=== PATIENT | female | born 1975 | race Caucasian/White ===

== ENCOUNTER 2017-08-10 19:39 | Emergency (ER) | payer BC ==
[~2017-08-10] VITALS: Ht 170.1 cm; Wt 91.6 kg
[~2017-08-10 19:39] MED LIST: ADIPEX-P37.5 MG PO; ALBUTEROL0.09 MG/A2 IH; BENADRYL25 MG PO; BIOTIN1 M1 PO; CLARITIN10 MG PO; COMBIVENT1 ARO IH; FLEXERIL10 MG PO; FLONASE ALLERG9.9 ML NAS; HYCODAN/HYDROMET5 ML PO; HYDROCODONE BIT1 T11 PO; IBU-8800 MG PO; KENALOG0.1% TP; MEDROL DOSEPAK4 MG PO; MOTRIN800 MG PO; MULTIVITAMIN1 SGL PO; NORFLEX100 MG PO; PERCOCET 325 MG1 TA7 PO; PROVENTIL0.09 MG/A1 INH; TESSALON PERLE100 MG PO; TRAMADOL HCL50 MG PO; VICODIN 500 MG-1 TAB PO; VITAMIN C100 MG PO; VOLTAREN50 M1 PO; WYMOX500 MG PO; XANAX0.25 MG PO; ZITHROMAX Z PA250 MG PO; ZOFRAN ODT4 MG SL
[2017-08-10 21:20] LABS: BASO # 0.1 10*3/uL (0.0-0.1); BASO % 0.5 % (0.0-1.0); EOS # 0.2 10*3/uL (0.0-0.4); EOS % 1.4 % (1.0-4.0); HEMATOCRIT 38.3 % (37.0-47.0); HEMOGLOBIN 12.5 g/dl (12.0-16.0); LYMPH # 2.9 10*3/uL (1.3-4.4); LYMPH % 21.7 % (27.0-41.0); MEAN CELL VOLUME 92.3 fl (81.0-99.0); MEAN CORPUSCULAR HGB 30.1 pg (27.0-31.0); MEAN CORPUSCULAR HGB CONC 32.6 g/dl (33.0-37.0); MEAN PLATELET VOLUME 10.6 fl (9.6-12.3); MONO # 0.8 10*3/uL (0.1-1.0); NEUT # 9.2 10*3/uL (2.3-7.9); PLATELET COUNT AUTOMATED 316 10*3/uL (130-400); RED BLOOD COUNT 4.15 10*6/uL (4.10-5.10); RED CELL DISTRI WIDTH 12.1 % (0-14.5); WHITE BLOOD COUNT 13.1 10*3/uL (4.8-10.8)
[2017-08-10 21:35] LABS: ALBUMIN 3.3 gm/dl (3.1-4.5); ALKALINE PHOSPHATASE 57 U/L (45-117); BUN 12 mg/dl (7-24); CHLORIDE 106 mmol/L (98-107); LIPASE 165 U/L (73-393); MAGNESIUM 2.1 mg/dL (1.5-2.1); POTASSIUM 3.4 mmol/L (3.5-5.1); SGOT/AST 29 IU/L (3-35); SGPT/ALT 52 U/L (12-78); SODIUM 140 mmol/L (136-145)
[2017-08-10 23:11] VITALS: BP 117/69
[2017-08-11] MEDS ORDERED: ANAPROX DS550 MG PO (02:04)
== END 2017-08-11 02:04 | disposition home or self-care (01) ==
LOC: ED 19:39
PROVIDERS: Emergency Medicine Emergency Medical Services
DX: M94.0 Chondrocostal junction syndrome [Tietze] (principal); B34.9 Viral infection, unspecified; Z91.041 Radiographic dye allergy status; Z91.013 Allergy to seafood; Z79.899 Other long term (current) drug therapy

== ENCOUNTER 2017-10-31 08:16 | Inpatient (IN) | payer BC ==
[2017-10-31] VITALS (8 sets, daily range): BP systolic 100–137; BP diastolic 55–80
[~2017-10-31] VITALS: Ht 170.1 cm; Wt 98.1 kg
[~2017-10-31 08:16] MED LIST changes: +ANAPROX DS550 MG PO
[2017-10-31 08:57] LABS: BASO # 0.1 10*3/uL (0.0-0.1); BASO % 0.4 % (0.0-1.0); EOS # 0.2 10*3/uL (0.0-0.4); EOS % 1.6 % (1.0-4.0); HEMATOCRIT 40.4 % (37.0-47.0); HEMOGLOBIN 13.2 g/dl (12.0-16.0); LYMPH # 1.7 10*3/uL (1.3-4.4); LYMPH % 12.3 % (27.0-41.0); MEAN CELL VOLUME 91.6 fl (81.0-99.0); MEAN CORPUSCULAR HGB 29.9 pg (27.0-31.0); MEAN CORPUSCULAR HGB CONC 32.7 g/dl (33.0-37.0); MEAN PLATELET VOLUME 10.8 fl (9.6-12.3); MONO # 0.5 10*3/uL (0.1-1.0); MONO % 3.4 % (3.0-9.0); NEUT # 11.3 10*3/uL (2.3-7.9); NEUT % 81.2 % (47.0-73.0); PLATELET COUNT AUTOMATED 289 10*3/uL (130-400); RED BLOOD COUNT 4.41 10*6/uL (4.10-5.10); RED CELL DISTRI WIDTH 11.8 % (0-14.5); WHITE BLOOD COUNT 13.9 10*3/uL (4.8-10.8)
[2017-10-31 09:05] LABS: ACT PARTIAL THROMBO TIME 22.8 SECONDS (20.8-31.5)
[2017-10-31 09:14] LABS: ALBUMIN 3.4 gm/dl (3.1-4.5); ALKALINE PHOSPHATASE 56 U/L (45-117); BUN 14 mg/dl (7-24); CHLORIDE 106 mmol/L (98-107); CREATININE 0.89 mg/dL (0.55-1.02); LIPASE 150 U/L (73-393); POTASSIUM 3.6 mmol/L (3.5-5.1); SGOT/AST 35 IU/L (3-35); SGPT/ALT 58 U/L (12-78); SODIUM 138 mmol/L (136-145); TOTAL PROTEIN 7.2 gm/dL (6.4-8.2)
[2017-10-31 09:23] LABS: BETA-HCG, QUANT < 1.0 mIU/mL (1-3); TROPONIN I < 0.015 ng/ml (<0.045)
--- NOTE | 2017-10-31 09:32 | NUR ---
CALLED AND LEFT MESSAGE FOR PTS THAT SHE IS IN ER
--- NOTE | 2017-10-31 10:30 | NUR ---
PT STATES NAUSEA IS ALMOST GONE BUT STILL FEELS DIZZY IN ROOM CALL LIGHT IN REACH
--- NOTE | 2017-10-31 11:29 | NUR ---
pt does not have to urinate she is aware we need urine sample pt resting in bed call light in reach
--- NOTE | 2017-10-31 11:43 | NUR ---
FR COHEN IN ROOM WITH PT NO DISTRESS NOTED CALL LIGHT IN REACH
--- NOTE | 2017-10-31 13:00 | NUR ---
Time: 1300 A 42 year old FEMALE admitted to under services of ANGELIKA HANEY DO. Pt. arrived via ambulance from ER. Chief complaint: SYNCOPE, DIZZINESS, NAUSEA. JAIME BUSCH
[2017-10-31] MEDS ORDERED: CELEXA40 MG PO (13:49)
[2017-10-31] MEDS ORDERED: AMOXICILLIN500 M3 PO (13:50)
--- NOTE | 2017-10-31 13:51 | NUR ---
MED REC UPDATED BY LIST PROVIDED BY [facility].
--- NOTE | 2017-10-31 14:25 | NUR ---
DIVISION ORDER TECHNICIAN APPLIED AT THIS TIME, PT OFF FLOOR TO CT AT THIS TIME.
[2017-10-31] MEDS ORDERED: ALLER-TEC D 5-1 EACH PO (14:27)
--- NOTE | 2017-10-31 17:05 | NUR ---
DR CHÁVEZ UPDATED ON PT'S NEGATIVE ORTHOSTATIC BP'S, BUT PT IS EXTREMELY SYMPTOMATIC WITH ANY POSITION CHANGE.
[2017-10-31 17:22] LABS: BILIRUBIN NEGATIVE (NEGATIVE); BLOOD NEGATIVE (NEGATIVE); CLARITY CLEAR (CLEAR); COLOR YELLOW (YELLOW); GLUCOSE NEGATIVE (NEGATIVE); KETONE NEGATIVE (NEGATIVE); LEUKO ESTERASE NEGATIVE (NEGATIVE); NITRITE NEGATIVE (NEGATIVE); PH 7.5 (5.0-9.0); UROBILINOGEN 0.2 E.U./dl (0.2-1.0)
[2017-10-31 17:33] LABS: BACTERIA 2+; RBC 0-2 rbc/hpf (0-2); YEAST TRACE
--- NOTE | 2017-10-31 19:42 | NUR ---
PATIENT RESTING IN BED WITH NO S/S OF DISTRESS. BED IN LOWEST POSITION, CALL LIGHT IN REACH
[2017-11-01] VITALS: BP 121/66
[2017-11-01 07:22] LABS: HEMATOCRIT 39.1 % (37.0-47.0); HEMOGLOBIN 12.7 g/dl (12.0-16.0); MEAN CELL VOLUME 92.4 fl (81.0-99.0); MEAN CORPUSCULAR HGB CONC 32.5 g/dl (33.0-37.0); MEAN PLATELET VOLUME 11.1 fl (9.6-12.3); PLATELET COUNT AUTOMATED 326 10*3/uL (130-400); RED BLOOD COUNT 4.23 10*6/uL (4.10-5.10); RED CELL DISTRI WIDTH 11.8 % (0-14.5); WHITE BLOOD COUNT 21.5 10*3/uL (4.8-10.8)
[2017-11-01 07:52] LABS: PLATELET SUFFICIENCY NORMAL (NORMAL); TOTAL CELLS COUNTED 100 #CELLS
[2017-11-01 08:00] VITALS: BP 127/70
[2017-11-01 08:09] LABS: BUN 10 mg/dl (7-24); CHLORIDE 106 mmol/L (98-107); CREATININE 0.84 mg/dL (0.55-1.02); PHOSPHOROUS 1.8 mg/dL (2.5-4.9); SODIUM 140 mmol/L (136-145)
[2017-11-01 08:14] LABS: THYROID STIM HORMONE (HS) 0.466 uIU/ml (0.358-4.75)
--- NOTE | 2017-11-01 09:00 | NUR ---
Special Delivery Messenger in to talk to patient. Patient states lives at home with . There are few steps in the home. Physician: abbie palomino Pharmacy: [facility] health services: none Patient's level of ADLs: INDEPENDENT Patient has working utilities: all working DME: none Follow-up physician's appointment after d/c: will be made by hospitalist nurse director upon discharge Does patient want to access PORTAL?: no Discharge plan discussed with patient, patient lives at home with , she is independent in adls and ambulation, works, drives, denies any home needs. ADELE ZHANG
[2017-11-01 12:00] VITALS: BP 137/70
[2017-11-01 16:00] VITALS: BP 106/50
[2017-11-01 20:00] VITALS: BP 137/79
--- NOTE | 2017-11-01 22:41 | NUR ---
PATIENT RESTING IN BED WITH NO NEEDS MADE. NO S/S OF DISTRESS. BED IN LOWEST POSITION, CALL LIGHT IN REACH
[2017-11-02] VITALS: BP 147/79
--- NOTE | 2017-11-02 00:59 | NUR ---
24 HR chart check completed.
[2017-11-02 04:05] VITALS: BP 144/76
[2017-11-02 08:00] VITALS: BP 129/81
--- NOTE | 2017-11-02 08:45 | NUR ---
IN BED AWAKE ALERT AND ORIENTED X3, PLEASANT. NO S/S OF DISTRESS. STATES SHE WAS DIZZY WHEN UP AMBULATING TO RESTROOM AND FELT SLIGHTLY NAUSEATED DURING THIS TIME WELL. WILL CONT TO MONITOR. SEE ASSESS. CALL LIGHT IN REACH.
--- NOTE | 2017-11-02 09:20 | NUR ---
C/O NAUSEA AFTER BEING SEEN BY THERAPY. ZOFRAN GIVEN AT THIS TIME. WILL CONT TO MONITOR. CALL LIGHT IN REACH.
--- NOTE | 2017-11-02 09:26 | NUR ---
case management visits with patient, patient denies any home needs at this time
--- NOTE | 2017-11-02 09:27 | NUR ---
PHYSICAL THERAPY PAtient evaluated on 4, full evalaution to follow. Continue wth PT as per plan of care with severe vertigo, possible labyrinthitis and high risk for falls precautions. Fanta-hallpike Test with minimal few beat nystagmus to right with significant nausia- nurse aware and medication being prepaired. PAtient is high complexity via chart review, tests and evaluation:[id number]. PAtient high risk for falls, uanble to sit on edge of bed or ambulate/complete fucntional mobilty independantly at this date. Will require extended admission with possible out patient vestibualr rehab upon d/c versus in-patient rehab, pending progress. Thank you for this referral. Tanya Au,PT
--- NOTE | 2017-11-02 11:48 | NUR ---
PHYSICAL THERAPY PT treatment x 25 minutes 1:1 with PT. Vestibular rehab for right nystagmus 3-4 times. No significant change in symptoms with completion. Continues to have sporadic 1-2 beats only nystagmus on right with long intervals between occurances and presenting on the left in the same manner with right treatment. PAtient also with double vision progression with right rotation during session. PAtient supine in bed with samuel llight in hand and nurse educated of nausia and not feeling well post treatment. PAtient still with significajnt vertigo, nausia and inability to walk (I) or have much food intake due to present symptoms. Tanya Au,PT
[2017-11-02 12:00] VITALS: BP 113/66
[2017-11-02 16:00] VITALS: BP 122/76
[2017-11-02 20:00] VITALS: BP 125/71
--- NOTE | 2017-11-02 22:19 | NUR ---
PATIENT RESTING WITH NO S/S OF DISTRESS. NO NEEDS MADE. FLUIDS INFUSING WITHOUT DIFFICULTY. BED IN LOWEST POSITION, CALL LIGHT IN REACH
[2017-11-03] VITALS: BP 132/72
--- NOTE | 2017-11-03 00:48 | NUR ---
24 HR chart check completed.
--- NOTE | 2017-11-03 02:59 | NUR ---
PATIENT RESTING IN BED WITH NO S/S OF DISTRESS. BED IN LOWEST POSITION, CALL LIGHT IN REACH
[2017-11-03 08:00] VITALS: BP 136/74
--- NOTE | 2017-11-03 08:15 | NUR ---
PT C/O NAUSEA AT THIS TIME, REQUESTED AND ADMINSITERED ZOFRAN PRN PER ORDERS. WILL MONITOR EFFECTS, CALL LIGHT WITH IN REACH
--- NOTE | 2017-11-03 09:00 | NUR ---
case management visits with patient, patient denies any home needs
--- NOTE | 2017-11-03 09:30 | NUR ---
PRN ZOFRAN EFFECTIVE AT THIS TIME, PT HAS NO FURTHER C/O NAUSEA
--- NOTE | 2017-11-03 11:23 | NUR ---
PHYSICAL THERAPY Patient presented to therapy in supine with report of feeling much better and little to no dizziness or nausea. Patient was instructed to sit with feet at head of bed and then to lie supine with head rotated to the right for the EWA GUZMAN-PIKE manuver test. Patient had no nystagmus with head rotated to the right at 30 sec.interval. Patient's had no double vision with head turned to the right as she did yesterday. Patient's left head position also revealed no nystagmus , double vision, or nausea. Patient had no symptoms with left S/L position. Patient was transfered back to sitting at EOB and again, had no symptoms of dizziness , nausea, or double vision. Patient was left in supine in bed with head raised and call light within reach. Patient is ambulating too and from restroom Independently. DARI SEXTON EMERGENCY MEDICAL SERVICES COORDINATOR
--- NOTE | 2017-11-03 11:30 | NUR ---
ASSUMED CARE OF PATIENT. PATIENT IS RESTING IN THE BED WITH FAMILY AT THE BEDSIDE. PATIENT IS IN CONTACT ISOLATION. PATIENT DENIES ANY PAIN OR DISCOMFORT UPON ASSESSMENT. PATIENT HAS HAD PRIOR DIZZINESS UPON STANDING, BUT DENIES ANY UPON STANDING DURING ASSESSMENT. ORTHOSTATIC BLOOD PRESSURES WERE NEGATIVE. PATIENT IS A&OX3 AND AMBULATORY. PATIENT HAS NO FURTHER REQUESTS AT THIS TIME. CALL LIGHT WITHIN REACH, SEE ASSESSMENT.
[2017-11-03 12:00] VITALS: BP 125/74
--- NOTE | 2017-11-03 14:11 | NUR ---
PHYSICAL THERAPY Patient presented to therapy in supine with report of feeling much better. Patient performed transfers Independently. Patient performed standing balance at bedside fixing vision on one position on wall for 2 minutes with no LOB, Dizziness, or other difficulty. Patient performed gait with no assistive device and Close Supervision to CGA for 72' x 1 in room with no LOB or dizziness. Patient performed 5 sit to stands with no LOB or dizziness for chair. Patient is possibly going to be D/C'd tommorrow. Patient tolerated treatment very well. DARI SEXTON WEATHER FORCASTER
[2017-11-03 16:00] VITALS: BP 122/75
[2017-11-03 20:00] VITALS: BP 119/74
[2017-11-04] VITALS: BP 118/68
[2017-11-04 06:17] LABS: BASO # 0.1 10*3/uL (0.0-0.1); BASO % 0.6 % (0.0-1.0); EOS # 0.2 10*3/uL (0.0-0.4); EOS % 1.7 % (1.0-4.0); HEMATOCRIT 39.1 % (37.0-47.0); LYMPH % 20.9 % (27.0-41.0); MEAN CELL VOLUME 90.7 fl (81.0-99.0); MEAN CORPUSCULAR HGB 30.2 pg (27.0-31.0); MEAN CORPUSCULAR HGB CONC 33.2 g/dl (33.0-37.0); MEAN PLATELET VOLUME 10.8 fl (9.6-12.3); MONO # 0.7 10*3/uL (0.1-1.0); MONO % 5.1 % (3.0-9.0); NEUT # 10.1 10*3/uL (2.3-7.9); PLATELET COUNT AUTOMATED 293 10*3/uL (130-400); RED BLOOD COUNT 4.31 10*6/uL (4.10-5.10); RED CELL DISTRI WIDTH 11.8 % (0-14.5); WHITE BLOOD COUNT 14.4 10*3/uL (4.8-10.8)
[2017-11-04 06:28] LABS: ALBUMIN 3.1 gm/dl (3.1-4.5); ALKALINE PHOSPHATASE 57 U/L (45-117); BUN 13 mg/dl (7-24); CHLORIDE 99 mmol/L (98-107); CREATININE 0.96 mg/dL (0.55-1.02); POTASSIUM 4.3 mmol/L (3.5-5.1); SGOT/AST 27 IU/L (3-35); SGPT/ALT 62 U/L (12-78); SODIUM 138 mmol/L (136-145); TOTAL PROTEIN 6.8 gm/dL (6.4-8.2)
[2017-11-04 08:00] VITALS: BP 122/75
--- NOTE | 2017-11-04 08:18 | NUR ---
PHYSICAL THERAPY Arlette seen this AM 1:1 for her therapy gait. Pt having no complaints, no dizziness, no LOB. Pt said that she is independent to and from her bathroom having no problem. All transfers were independnet. Gait total 185' X 1, turns to Pt's right and left, stop/start gait no LOB independent. Pt back supine in bed, call light, phone. Said that she may be D/C home today. MANUELA VALENTINE MIXED CROP FARMER.
--- NOTE | 2017-11-04 09:00 | NUR ---
case mangement visits with patient, patient denies any home needs
[2017-11-04] MEDS ORDERED: Meclizine25 MG PO (11:48)
[2017-11-04] MEDS ORDERED: ZOFRAN ODT4 MG SL (11:48)
[2017-11-04 12:00] VITALS: BP 102/74
--- NOTE | 2017-11-04 12:53 | NUR ---
Discharge instructions reviewed with patient/family. Patient receptive and verbalizes understanding. Follow-up care arranged. Written instructions given to patient/family. ELOISA LAURENT
--- NOTE | 2017-11-04 15:03 | NUR ---
PHYSICAL THERAPY CO-SIGN I approve of the Phyical Therapy notes written above. DARRELL MCLEAN PT
== END 2017-11-04 12:53 | disposition home or self-care (01) | DRG 312 ==
LOC: ED 08:16 → 4E 11:48 → EDHOLD 11:48 → 4E 12:16
PROVIDERS: Emergency Medicine; Student in an Organized Health Care Education/Training Program; ADMIT Internal Medicine
DX: R55 Syncope and collapse (principal); E44.1 Mild protein-calorie malnutrition; F33.9 Major depressive disorder, recurrent, unspecified; H83.09 Labyrinthitis, unspecified ear; R42 Dizziness and giddiness; R26.2 Difficulty in walking, not elsewhere classified; D72.829 Elevated white blood cell count, unspecified; R73.9 Hyperglycemia, unspecified; E55.9 Vitamin D deficiency, unspecified; Z79.899 Other long term (current) drug therapy; Z91.041 Radiographic dye allergy status; Z91.013 Allergy to seafood; Z90.49 Acquired absence of other specified parts of digestive tract; Z90.710 Acquired absence of both cervix and uterus; Z72.89 Other problems related to lifestyle; Z82.49 Family history of ischemic heart disease and other diseases of the circulatory system; Z83.3 Family history of diabetes mellitus; Z98.51 Tubal ligation status; Z82.3 Family history of stroke; Z68.33 Body mass index [BMI] 33.0-33.9, adult

== ENCOUNTER 2018-02-05 21:17 | Emergency (ER) | payer OTHER ==
[~2018-02-05] VITALS: Ht 170.1 cm; Wt 97.5 kg
[~2018-02-05 21:17] MED LIST changes: +ALLER-TEC D 5-1 EACH PO; +AMOXICILLIN500 M3 PO; +CELEXA40 MG PO; +Meclizine25 MG PO
[2018-02-05 21:21] VITALS: BP 125/88
[2018-02-05 21:46] LABS: BASO # 0.1 10*3/uL (0.0-0.1); BASO % 0.7 % (0.0-1.0); EOS # 0.2 10*3/uL (0.0-0.4); EOS % 2.1 % (1.0-4.0); HEMATOCRIT 40.1 % (37.0-47.0); HEMOGLOBIN 13.1 g/dl (12.0-16.0); LYMPH # 2.4 10*3/uL (1.3-4.4); LYMPH % 27.5 % (27.0-41.0); MEAN CELL VOLUME 92.6 fl (81.0-99.0); MEAN CORPUSCULAR HGB 30.3 pg (27.0-31.0); MEAN CORPUSCULAR HGB CONC 32.7 g/dl (33.0-37.0); MEAN PLATELET VOLUME 10.7 fl (9.6-12.3); MONO # 0.5 10*3/uL (0.1-1.0); MONO % 5.9 % (3.0-9.0); NEUT # 5.5 10*3/uL (2.3-7.9); NEUT % 63.5 % (47.0-73.0); PLATELET COUNT AUTOMATED 340 10*3/uL (130-400); RED BLOOD COUNT 4.33 10*6/uL (4.10-5.10); WHITE BLOOD COUNT 8.7 10*3/uL (4.8-10.8)
[2018-02-05 21:58] LABS: BUN 15 mg/dl (7-24); CHLORIDE 105 mmol/L (98-107); CREATININE 0.94 mg/dL (0.55-1.02); LIPASE 191 U/L (73-393); POTASSIUM 4.2 mmol/L (3.5-5.1); SGPT/ALT 69 U/L (12-78); SODIUM 138 mmol/L (136-145)
[2018-02-05 22:03] LABS: B-hCG (QUALITATIVE) NEGATIVE (NEGATIVE)
[2018-02-07 08:10] LABS: HIV 1+2 AB + HIV1 P24 AG Non Reactive (Non Reactive)
[2018-02-07 15:06] LABS: HEPATITIS B SURFACE AB 006395 Reactive (.); HEPATITIS C AB <0.1 (0.0-0.9)
== END 2018-02-05 22:32 | disposition home or self-care (01) ==
LOC: ED 21:17
PROVIDERS: Nurse Practitioner Family
DX: S50.812A Abrasion of left forearm, initial encounter (principal); S60.410A Abrasion of right index finger, initial encounter; S60.412A Abrasion of right middle finger, initial encounter; S60.416A Abrasion of right little finger, initial encounter; F10.10 Alcohol abuse, uncomplicated; W50.4XXA Accidental scratch by another person, initial encounter; Y93.89 Activity, other specified; Y92.89 Other specified places as the place of occurrence of the external cause; Y99.8 Other external cause status; Z91.041 Radiographic dye allergy status; Z91.013 Allergy to seafood; Z79.899 Other long term (current) drug therapy; Z90.49 Acquired absence of other specified parts of digestive tract; Z90.710 Acquired absence of both cervix and uterus; Z98.51 Tubal ligation status

== ENCOUNTER 2018-04-03 23:19 | Emergency (ER) | payer OTHER ==
[~2018-04-03] VITALS: Ht 170.1 cm; Wt 95.3 kg
[2018-04-03 23:19] VITALS: BP 141/85
[2018-04-04] MEDS ORDERED: EPIPEN 2-P0.3 MG/0.3 IJ (00:58)
== END 2018-04-04 01:02 | disposition home or self-care (01) ==
LOC: ED 23:19
DX: T78.49XA Other allergy, initial encounter (principal); Z91.041 Radiographic dye allergy status; Z91.013 Allergy to seafood; X58.XXXA Exposure to other specified factors, initial encounter

== ENCOUNTER 2018-06-21 17:37 | Emergency (ER) | payer OTHER ==
[~2018-06-21] VITALS: Ht 170.1 cm; Wt 99.8 kg
[~2018-06-21 17:37] MED LIST changes: +EPIPEN 2-P0.3 MG/0.3 IJ
[2018-06-21 17:45] VITALS: BP 127/87
== END 2018-06-21 18:14 | disposition home or self-care (01) ==
LOC: ED 17:37
DX: H10.9 Unspecified conjunctivitis (principal); Z91.041 Radiographic dye allergy status; Z91.013 Allergy to seafood

== ENCOUNTER → 2018-09-05 | Outpatient (CLI) | payer OTHER ==
[~2018-09-05] MED LIST changes: +AUGMENTIN 500500 M1 PO; +NAPROSYN500 MG PO; +ZOFRAN4 MG PO
== END | disposition home or self-care (01) ==
LOC: US 07:18
DX: R10.2 Pelvic and perineal pain (principal); M54.9 Dorsalgia, unspecified; Z90.721 Acquired absence of ovaries, unilateral; Z90.710 Acquired absence of both cervix and uterus

== ENCOUNTER 2018-09-08 19:42 | Emergency (ER) | payer OTHER ==
[~2018-09-08] VITALS: Ht 170.1 cm; Wt 99.8 kg
[~2018-09-08 19:42] MED LIST changes: -AUGMENTIN 500500 M1 PO; -NAPROSYN500 MG PO; -ZOFRAN4 MG PO
[2018-09-08 19:44] VITALS: BP 121/92
[2018-09-08] MEDS ORDERED: ZOFRAN4 MG PO (19:48)
[2018-09-08] MEDS ORDERED: AUGMENTIN 500500 M1 PO (19:48)
[2018-09-10 15:06] LABS: HEPATITIS B SURFACE AG Negative (Negative); HEPATITIS C AB <0.1 (0.0-0.9)
== END 2018-09-08 19:55 | disposition home or self-care (01) ==
LOC: ED 19:42
PROVIDERS: Nurse Practitioner Family
DX: S51.851A Open bite of right forearm, initial encounter (principal); S51.852A Open bite of left forearm, initial encounter; S50.812A Abrasion of left forearm, initial encounter; S50.811A Abrasion of right forearm, initial encounter; Z91.041 Radiographic dye allergy status; Z91.013 Allergy to seafood; W50.3XXA Accidental bite by another person, initial encounter; Y93.89 Activity, other specified; Y92.531 Health care provider office as the place of occurrence of the external cause; Y99.8 Other external cause status

== ENCOUNTER 2018-09-19 07:31 | Emergency (ER) | payer OTHER ==
[~2018-09-19] VITALS: Ht 170.1 cm; Wt 99.8 kg
[~2018-09-19 07:31] MED LIST changes: +AUGMENTIN 500500 M1 PO; +ZOFRAN4 MG PO
[2018-09-19 07:33] VITALS: BP 131/84
[2018-09-19] MEDS ORDERED: NAPROSYN500 MG PO (08:51)
== END 2018-09-19 09:07 | disposition home or self-care (01) ==
LOC: ED 07:31
DX: S86.911A Strain of unspecified muscle(s) and tendon(s) at lower leg level, right leg, initial encounter (principal); Z91.041 Radiographic dye allergy status; Z91.013 Allergy to seafood; Z79.2 Long term (current) use of antibiotics; Z90.710 Acquired absence of both cervix and uterus; Z90.49 Acquired absence of other specified parts of digestive tract; X50.1XXA Overexertion from prolonged static or awkward postures, initial encounter; Y93.01 Activity, walking, marching and hiking; Y92.89 Other specified places as the place of occurrence of the external cause; Y99.8 Other external cause status

== ENCOUNTER → 2018-09-22 | Outpatient (CLI) | payer OTHER ==
[~2018-09-22] MED LIST changes: +NAPROSYN500 MG PO
== END | disposition home or self-care (01) ==
LOC: MRI 07:52
DX: S86.911A Strain of unspecified muscle(s) and tendon(s) at lower leg level, right leg, initial encounter (principal); X58.XXXA Exposure to other specified factors, initial encounter; Y93.89 Activity, other specified; Y92.89 Other specified places as the place of occurrence of the external cause; Y99.8 Other external cause status

== ENCOUNTER 2018-10-17 04:02 | Emergency (ER) | payer OTHER ==
[~2018-10-17] VITALS: Ht 170.1 cm; Wt 95.3 kg
[2018-10-17 04:05] VITALS: BP 134/90
== END 2018-10-17 04:15 | disposition home or self-care (01) ==
LOC: ED 04:02
DX: Z04.71 Encounter for examination and observation following alleged adult physical abuse (principal); Z91.041 Radiographic dye allergy status; Z91.013 Allergy to seafood; Z79.2 Long term (current) use of antibiotics; Z79.1 Long term (current) use of non-steroidal anti-inflammatories (NSAID); Z90.49 Acquired absence of other specified parts of digestive tract; Z90.710 Acquired absence of both cervix and uterus; Y04.8XXA Assault by other bodily force, initial encounter; Y93.89 Activity, other specified; Y92.69 Other specified industrial and construction area as the place of occurrence of the external cause; Y99.8 Other external cause status

== ENCOUNTER → 2019-06-01 | Outpatient (CLI) | payer OTHER ==
[~2019-06-01] MED LIST changes: +AIMOVIG AU70 MG/1 ML SQ; +AUGMENTIN 875875 MG PO; +AVPAK AZITHROM250 MG PO; +IBU800 MG PO; +MUCINEX1200 M1 PO; +Motrin,Rufen800 MG PO; +PHENTERMINE H37.5 M1 PO; +PREDNISONE50 MG PO
== END | disposition home or self-care (01) ==
LOC: ORTHO 00:05
DX: M79.661 Pain in right lower leg (principal)

== ENCOUNTER 2019-06-11 10:44 | Emergency (ER) | payer OTHER ==
[~2019-06-11] VITALS: Ht 170.1 cm; Wt 91.2 kg
--- NOTE | ~2019-06-11 | EKG ---
[place], [place] ELECTROCARDIOGRAM REPORT NAME: VALERY PRADHAN UNIT #: [id number] ROOM: DOCTOR: EPIPHANY DRAFT REPORT BIRTHDATE: [birth year] [facility] Test Date: 2019-06-11 Test Time: 10:46:23 Pat Name: VALERY PRADHAN Department: Room: Gender: F Computer Programming Manager: : 1975 Requested By: DELORES HOLLOWAY Order Number: [id number] Reading MD: Reji Jimenez Measurements Intervals [place]co Rate: 111 P: 47 IN: 99 QRS: 20 QRSD: 76 T: 31 QT: 333 QTc: 453 Interpretive Statements Sinus tachycardia No previous ECG available for comparison Electronically Signed On 06-12-2019 7:46:07 PDT by Reji Jimenez CM:EKGRPT:ELECTROCARDIOGRAM REPORT [id number] DELORES OLIVO DRAFT REPORT DELORES HOLLOWAY M.D.
[~2019-06-11 10:44] MED LIST changes: -AIMOVIG AU70 MG/1 ML SQ; -Motrin,Rufen800 MG PO; -PHENTERMINE H37.5 M1 PO
[2019-06-11 11:09] LABS: BASO # 0.1 10*3/uL (0.0-0.1); BASO % 0.5 % (0.0-1.0); EOS # 0.1 10*3/uL (0.0-0.4); EOS % 0.8 % (1.0-4.0); HEMOGLOBIN 13.5 g/dl (12.0-16.0); LYMPH # 3.3 10*3/uL (1.3-4.4); LYMPH % 22.4 % (27.0-41.0); MEAN CELL VOLUME 92.9 fl (81.0-99.0); MEAN CORPUSCULAR HGB 29.9 pg (27.0-31.0); MEAN CORPUSCULAR HGB CONC 32.1 g/dl (33.0-37.0); MEAN PLATELET VOLUME 11.2 fl (9.6-12.3); MONO # 0.7 10*3/uL (0.1-1.0); MONO % 4.9 % (3.0-9.0); NEUT # 10.3 10*3/uL (2.3-7.9); PLATELET COUNT AUTOMATED 322 10*3/uL (130-400); RED BLOOD COUNT 4.52 10*6/uL (4.10-5.10); RED CELL DISTRI WIDTH 11.9 % (0-14.5); WHITE BLOOD COUNT 14.6 10*3/uL (4.8-10.8)
[2019-06-11 11:19] LABS: ACT PARTIAL THROMBO TIME 27.9 SECONDS (20.0-32.1); INTERNATIONAL NORM RATIO 0.9 (2.0-3.5)
[2019-06-11 11:26] LABS: ALBUMIN 3.7 gm/dl (3.1-4.5); ALKALINE PHOSPHATASE 75 U/L (45-117); BUN 10 mg/dl (7-24); CHLORIDE 104 mmol/L (98-107); CREATININE 1.11 mg/dL (0.55-1.02); POTASSIUM 3.8 mmol/L (3.5-5.1); SGOT/AST 30 IU/L (3-35); SGPT/ALT 55 U/L (12-78); SODIUM 139 mmol/L (136-145); TOTAL PROTEIN 7.5 gm/dL (6.4-8.2)
[2019-06-11] MEDS ORDERED: PHENTERMINE H37.5 M1 PO (11:27)
[2019-06-11] MEDS ORDERED: AIMOVIG AU70 MG/1 ML SQ (11:27)
[2019-06-11 11:30] LABS: TROPONIN I < 0.015 ng/ml (<0.045)
[2019-06-11 15:16] VITALS: BP 100/67
[2019-06-11] MEDS ORDERED: Motrin,Rufen800 MG PO (16:27)
== END 2019-06-11 16:32 | disposition home or self-care (01) ==
LOC: ED 10:44
PROVIDERS: Emergency Medicine
DX: M94.0 Chondrocostal junction syndrome [Tietze] (principal); R06.02 Shortness of breath; R20.2 Paresthesia of skin; R11.0 Nausea; R20.0 Anesthesia of skin; Z91.041 Radiographic dye allergy status; Z91.013 Allergy to seafood; Z79.899 Other long term (current) drug therapy

== ENCOUNTER 2019-07-11 21:05 | Emergency (ER) | payer OTHER ==
[~2019-07-11] VITALS: Ht 170.1 cm; Wt 90.7 kg
[~2019-07-11 21:05] MED LIST changes: +AIMOVIG AU70 MG/1 ML SQ; +Motrin,Rufen800 MG PO; +PHENTERMINE H37.5 M1 PO
== END 2019-07-11 23:29 | disposition home or self-care (01) ==
LOC: ED 21:05
DX: S49.92XA Unspecified injury of left shoulder and upper arm, initial encounter (principal); Z91.041 Radiographic dye allergy status; Z91.013 Allergy to seafood; Z79.899 Other long term (current) drug therapy; Z90.49 Acquired absence of other specified parts of digestive tract; Z90.710 Acquired absence of both cervix and uterus; W03.XXXA Other fall on same level due to collision with another person, initial encounter; Y93.F2 Activity, caregiving, lifting; Y92.238 Other place in hospital as the place of occurrence of the external cause; Y99.8 Other external cause status

== ENCOUNTER → 2019-08-09 | Outpatient (CLI) | payer OTHER | LOC: MRI 10:54 | DX: S46.012A Strain of muscle(s) and tendon(s) of the rotator cuff of left shoulder, initial encounter (principal); X58.XXXA Exposure to other specified factors, initial encounter; Y93.89 Activity, other specified; Y92.89 Other specified places as the place of occurrence of the external cause; Y99.8 Other external cause status ==

== ENCOUNTER 2020-02-25 07:57 | Emergency (ER) | payer OTHER ==
[~2020-02-25] VITALS: Ht 170.1 cm; Wt 99.8 kg
[2020-02-25 08:31] LABS: BASO # 0.1 10*3/uL (0.0-0.1); BASO % 0.5 % (0.0-1.0); EOS # 0.2 10*3/uL (0.0-0.4); EOS % 1.7 % (1.0-4.0); HEMATOCRIT 41.2 % (37.0-47.0); HEMOGLOBIN 13.1 g/dl (12.0-16.0); LYMPH # 3.1 10*3/uL (1.3-4.4); MEAN CELL VOLUME 93.6 fl (81.0-99.0); MEAN CORPUSCULAR HGB 29.8 pg (27.0-31.0); MEAN CORPUSCULAR HGB CONC 31.8 g/dl (33.0-37.0); MEAN PLATELET VOLUME 10.9 fl (9.6-12.3); MONO # 0.7 10*3/uL (0.1-1.0); MONO % 5.7 % (3.0-9.0); NEUT # 7.5 10*3/uL (2.3-7.9); NEUT % 64.6 % (47.0-73.0); PLATELET COUNT AUTOMATED 345 10*3/uL (130-400); WHITE BLOOD COUNT 11.6 10*3/uL (4.8-10.8)
[2020-02-25] MEDS ORDERED: PROVENTIL HFA6.7 GM INH (08:32)
[2020-02-25 08:48] LABS: LDH 183 U/L (84-246); TROPONIN I < 0.015 ng/ml (<0.045)
[2020-02-25 08:53] LABS: ALBUMIN 3.3 gm/dl (3.1-4.5); ALKALINE PHOSPHATASE 61 U/L (45-117); BUN 8 mg/dl (7-24); CHLORIDE 106 mmol/L (98-107); CREATININE 0.99 mg/dL (0.55-1.02); POTASSIUM 3.3 mmol/L (3.5-5.1); SGOT/AST 30 IU/L (3-35); SGPT/ALT 51 U/L (12-78); SODIUM 140 mmol/L (136-145); TOTAL PROTEIN 7.2 gm/dL (6.4-8.2)
[2020-02-25 08:54] LABS: TROPONIN I < 0.015 ng/ml (<0.045)
[2020-02-25 08:55] LABS: ACT PARTIAL THROMBO TIME 28.8 SECONDS (20.0-32.1); INTERNATIONAL NORM RATIO 0.9 (2.0-3.5)
[2020-02-25 10:16] VITALS: BP 112/61
== END 2020-02-25 09:54 | disposition home or self-care (01) ==
LOC: ED 07:57
PROVIDERS: Emergency Medicine
DX: B34.9 Viral infection, unspecified (principal); Z20.828 Contact with and (suspected) exposure to other viral communicable diseases; J45.909 Unspecified asthma, uncomplicated; R19.7 Diarrhea, unspecified; R10.9 Unspecified abdominal pain; Z91.041 Radiographic dye allergy status; Z91.013 Allergy to seafood; Z79.899 Other long term (current) drug therapy; Z90.49 Acquired absence of other specified parts of digestive tract; Z90.710 Acquired absence of both cervix and uterus

== ENCOUNTER 2020-10-16 15:04 | Emergency (ER) | payer SELFPAY ==
[~2020-10-16] VITALS: Wt 99.8 kg
[~2020-10-16 15:04] MED LIST changes: +PROVENTIL HFA6.7 GM INH
[2020-10-16 15:13] VITALS: BP 137/81
== END 2020-10-16 16:02 | disposition home or self-care (01) ==
LOC: ED 15:04
DX: U07.1 COVID-19 (principal); B34.9 Viral infection, unspecified; Z91.041 Radiographic dye allergy status; Z88.8 Allergy status to other drugs, medicaments and biological substances; Z90.710 Acquired absence of both cervix and uterus

== ENCOUNTER → 2020-10-27 | Outpatient (CLI) | payer SELFPAY | END | disposition home or self-care (01) | LOC: COVID19 08:02 | PROVIDERS: ATTEND Internal Medicine | DX: Z20.828 Contact with and (suspected) exposure to other viral communicable diseases (principal) ==

== ENCOUNTER 2021-06-02 09:57 | Emergency (ER) | payer SELFPAY ==
[~2021-06-02] VITALS: Ht 170.1 cm; Wt 93.0 kg
[2021-06-02 10:02] VITALS: BP 118/65
[2021-06-02] MEDS ORDERED: TYLENOL325 M1 PO (11:20)
[2021-06-02] MEDS ORDERED: CYCLOBENZAPRINE10 MG PO ×2 (11:20)
[2021-06-02] MEDS ORDERED: NAPROXEN250 MG PO ×2 (11:20)
== END 2021-06-02 11:27 | disposition home or self-care (01) ==
LOC: ED 09:57
DX: S70.02XA Contusion of left hip, initial encounter (principal); S70.12XA Contusion of left thigh, initial encounter; M54.5 Low back pain; E66.9 Obesity, unspecified; Z91.041 Radiographic dye allergy status; Z91.013 Allergy to seafood; Z79.899 Other long term (current) drug therapy; F32.9 Major depressive disorder, single episode, unspecified; Z90.49 Acquired absence of other specified parts of digestive tract; Z98.890 Other specified postprocedural states; Z90.711 Acquired absence of uterus with remaining cervical stump; Z98.51 Tubal ligation status; W18.39XA Other fall on same level, initial encounter; Y93.89 Activity, other specified; Y92.098 Other place in other non-institutional residence as the place of occurrence of the external cause; Y99.8 Other external cause status

== ENCOUNTER 2021-07-16 20:46 | Emergency (ER) | payer OTHER ==
[~2021-07-16] VITALS: Ht 170.1 cm; Wt 95.3 kg
[~2021-07-16 20:46] MED LIST changes: +CYCLOBENZAPRINE10 MG PO; +NAPROXEN250 MG PO; +TYLENOL325 M1 PO
[2021-07-16 21:07] VITALS: BP 135/88
== END 2021-07-17 02:07 | disposition home or self-care (01) ==
LOC: ED 20:46
DX: S16.1XXA Strain of muscle, fascia and tendon at neck level, initial encounter (principal); S09.90XA Unspecified injury of head, initial encounter; Z91.041 Radiographic dye allergy status; Z91.013 Allergy to seafood; W22.8XXA Striking against or struck by other objects, initial encounter; Y93.89 Activity, other specified; Y92.89 Other specified places as the place of occurrence of the external cause; Y99.0 Civilian activity done for income or pay

== ENCOUNTER → 2023-06-22 | Outpatient (CLI) | payer BC ==
[~2023-06-22] MED LIST changes: +ZITHROMAX250 MG PO
[2023-06-22 09:24] LABS: BASO # 0.1 10*3/uL (0.0-0.1); BASO % 0.8 % (0.0-1.0); EOS # 0.2 10*3/uL (0.0-0.4); EOS % 2.2 % (1.0-4.0); HEMATOCRIT 45.7 % (37.0-47.0); LYMPH # 2.6 10*3/uL (1.3-4.4); LYMPH % 24.4 % (27.0-41.0); MEAN CELL VOLUME 92.9 fl (81.0-99.0); MEAN CORPUSCULAR HGB 29.9 pg (27.0-31.0); MEAN CORPUSCULAR HGB CONC 32.2 g/dl (33.0-37.0); MEAN PLATELET VOLUME 11.2 fl (9.6-12.3); MONO # 0.6 10*3/uL (0.1-1.0); MONO % 5.8 % (3.0-9.0); NEUT % 66.2 % (47.0-73.0); PLATELET COUNT AUTOMATED 374 10*3/uL (130-400); RED BLOOD COUNT 4.92 10*6/uL (4.10-5.10); RED CELL DISTRI WIDTH 12.2 % (0-14.5); WHITE BLOOD COUNT 10.5 10*3/uL (4.8-10.8)
[2023-06-22 10:03] LABS: VITAMIN D, 25-HYDROXY 24.9 ng/mL (30-100)
[2023-06-22 10:04] LABS: ALKALINE PHOSPHATASE 71 U/L (46-116); BUN 8 mg/dl (9-23); CHLORIDE 104 mmol/L (98-107); CHOLESTEROL 151 mg/dL (<200); LDL CHOLESTEROL 85 mg/dL (9-159); POTASSIUM 4.5 mmol/L (3.4-5.1); SGPT/ALT 40 U/L (10-49); TOTAL PROTEIN 7.5 gm/dL (6.0-8.0); TRIGLYCERIDES 120 mg/dl (<150)
== END | disposition home or self-care (01) ==
LOC: LAB 08:38
PROVIDERS: ATTEND Nurse Practitioner Primary Care
DX: R07.89 Other chest pain (principal); E78.00 Pure hypercholesterolemia, unspecified; E55.9 Vitamin D deficiency, unspecified; D50.8 Other iron deficiency anemias; R53.83 Other fatigue

== ENCOUNTER 2023-10-20 18:09 | Emergency (ER) | payer OTHER, BC ==
[~2023-10-20] VITALS: Ht 170.1 cm; Wt 95.3 kg
[2023-10-20 18:57] LABS: BASO # 0.1 10*3/uL (0.0-0.1); BASO % 0.7 % (0.0-1.0); EOS # 0.2 10*3/uL (0.0-0.4); EOS % 2.2 % (1.0-4.0); HEMATOCRIT 41.5 % (37.0-47.0); LYMPH # 2.5 10*3/uL (1.3-4.4); LYMPH % 23.4 % (27.0-41.0); MEAN CELL VOLUME 89.8 fl (81.0-99.0); MEAN CORPUSCULAR HGB 29.9 pg (27.0-31.0); MEAN CORPUSCULAR HGB CONC 33.3 g/dl (33.0-37.0); MEAN PLATELET VOLUME 10.4 fl (9.6-12.3); MONO # 0.7 10*3/uL (0.1-1.0); MONO % 6.3 % (3.0-9.0); NEUT # 7.2 10*3/uL (2.3-7.9); PLATELET COUNT AUTOMATED 359 10*3/uL (130-400); RED BLOOD COUNT 4.62 10*6/uL (4.10-5.10); RED CELL DISTRI WIDTH 12.1 % (0-14.5); WHITE BLOOD COUNT 10.8 10*3/uL (4.8-10.8)
[2023-10-20 19:07] LABS: ACT PARTIAL THROMBO TIME 28.2 SECONDS (20.0-32.1)
[2023-10-20 19:18] LABS: ALKALINE PHOSPHATASE 67 U/L (46-116); BUN 9 mg/dl (9-23); CHLORIDE 108 mmol/L (98-107); LIPASE 38 U/L (12-53); POTASSIUM 4.1 mmol/L (3.4-5.1); SGPT/ALT 61 U/L (5-49); TOTAL PROTEIN 7.2 gm/dL (6.0-8.0)
[2023-10-20] MEDS ORDERED: CYCLOBENZAPRINE10 MG PO (23:23)
[2023-10-20 23:32] VITALS: BP 148/73
== END 2023-10-20 23:32 | disposition home or self-care (01) ==
LOC: ED 18:09
PROVIDERS: Nurse Practitioner
DX: M54.2 Cervicalgia (principal); R51.9 Headache, unspecified; M25.512 Pain in left shoulder; M25.552 Pain in left hip; M25.551 Pain in right hip; F32.A Depression, unspecified; F41.9 Anxiety disorder, unspecified; J45.909 Unspecified asthma, uncomplicated; Z91.041 Radiographic dye allergy status; Z91.013 Allergy to seafood; Z88.8 Allergy status to other drugs, medicaments and biological substances; Z90.49 Acquired absence of other specified parts of digestive tract; Z90.710 Acquired absence of both cervix and uterus; Z98.51 Tubal ligation status; Z98.890 Other specified postprocedural states; V89.2XXA Person injured in unspecified motor-vehicle accident, traffic, initial encounter; Y93.89 Activity, other specified; Y92.410 Unspecified street and highway as the place of occurrence of the external cause; Y99.9 Unspecified external cause status; R10.2 Pelvic and perineal pain

== ENCOUNTER 2024-04-10 11:53 | Emergency (ER) | payer BC ==
[~2024-04-10] VITALS: Ht 170.1 cm; Wt 81.6 kg
[2024-04-10 11:59] VITALS: BP 118/76
[2024-04-10 12:43] LABS: BILIRUBIN Negative (Negative); BLOOD Negative (Negative); CLARITY Clear (Clear); COLOR Yellow (Yellow); GLUCOSE Negative (Negative); KETONE Negative (Negative); LEUKO ESTERASE Negative (Negative); NITRITE Negative (Negative); PH 5.5 (4.5-8.0); UROBILINOGEN 0.2 E.U./dl (0.0-1.0)
[2024-04-10] MEDS ORDERED: FLUONAZOLE150 M1 PO (14:03)
== END 2024-04-10 13:25 | disposition home or self-care (01) ==
LOC: ED 11:53
PROVIDERS: Nurse Practitioner Family
DX: R30.0 Dysuria (principal); M54.50 Low back pain, unspecified; J45.909 Unspecified asthma, uncomplicated; Z91.041 Radiographic dye allergy status; Z91.013 Allergy to seafood; Z90.49 Acquired absence of other specified parts of digestive tract; Z98.890 Other specified postprocedural states; Z90.711 Acquired absence of uterus with remaining cervical stump; Z98.51 Tubal ligation status

== ENCOUNTER 2024-06-09 21:05 | Emergency (ER) | payer OTHER ==
[~2024-06-09] VITALS: Ht 177.8 cm; Wt 100.0 kg
[~2024-06-09 21:05] MED LIST changes: +FLUONAZOLE150 M1 PO
[2024-06-09] MEDS ORDERED: Ketorolac Tromethamine 30 MG/ML VIAL IV ONE (21:15)
[2024-06-09] MEDS ORDERED: SODIUM CHLORIDE 0.9% 1,000 ML IV ONE ×2 (21:15→21:23)
[2024-06-09] MEDS ORDERED: Ondansetron Hydrochloride 4 MG/2 ML VIAL IV ONE (21:15)
[2024-06-09 21:29] LABS: BASO # 0.1 10*3/uL (0.0-0.1); BASO % 0.5 % (0.0-1.0); EOS # 0.2 10*3/uL (0.0-0.4); EOS % 1.2 % (1.0-4.0); HEMATOCRIT 41.5 % (37.0-47.0); LYMPH # 3.6 10*3/uL (1.3-4.4); LYMPH % 22.9 % (27.0-41.0); MEAN CORPUSCULAR HGB 29.9 pg (27.0-31.0); MEAN CORPUSCULAR HGB CONC 32.5 g/dl (33.0-37.0); MEAN PLATELET VOLUME 10.7 fl (9.6-12.3); MONO # 0.9 10*3/uL (0.1-1.0); MONO % 5.7 % (3.0-9.0); NEUT # 10.7 10*3/uL (2.3-7.9); NEUT % 69.1 % (47.0-73.0); PLATELET COUNT AUTOMATED 367 10*3/uL (130-400); RED BLOOD COUNT 4.51 10*6/uL (4.10-5.10); RED CELL DISTRI WIDTH 12.1 % (0-14.5); WHITE BLOOD COUNT 15.5 10*3/uL (4.8-10.8)
[2024-06-09 21:57] LABS: ALKALINE PHOSPHATASE 72 U/L (46-116); BUN 9 mg/dl (9-23); CHLORIDE 106 mmol/L (98-107); LIPASE 35 U/L (12-53); POTASSIUM 3.8 mmol/L (3.4-5.1); SGPT/ALT 44 U/L (5-49); TOTAL PROTEIN 7.1 gm/dL (6.0-8.0)
[2024-06-09] MEDS ORDERED: PREDNISONE50 MG PO (23:10)
[2024-06-09] MEDS ORDERED: Ondansetron4 MG PO (23:10)
[2024-06-09 23:14] VITALS: BP 128/72
== END 2024-06-09 23:22 | disposition home or self-care (01) ==
LOC: ED 21:05
PROVIDERS: Physician Assistant Medical
DX: R11.2 Nausea with vomiting, unspecified (principal); K25.9 Gastric ulcer, unspecified as acute or chronic, without hemorrhage or perforation; R42 Dizziness and giddiness; F32.A Depression, unspecified; F41.9 Anxiety disorder, unspecified; J45.909 Unspecified asthma, uncomplicated; Z91.041 Radiographic dye allergy status; Z91.013 Allergy to seafood; Z90.49 Acquired absence of other specified parts of digestive tract; Z90.710 Acquired absence of both cervix and uterus; Z98.890 Other specified postprocedural states

== ENCOUNTER 2024-08-23 11:02 | Emergency (ER) | payer OTHER ==
[~2024-08-23] VITALS: Ht 170.1 cm; Wt 93.0 kg
[~2024-08-23 11:02] MED LIST changes: +Ondansetron4 MG PO
[2024-08-23 11:11] VITALS: BP 124/93
[2024-08-23] MEDS ORDERED: SODIUM CHLORIDE 0.9% 1,000 ML IV ONE ×2 (11:20)
[2024-08-23 11:51] LABS: BASO # 0.1 10*3/uL (0.0-0.1); BASO % 0.8 % (0.0-1.0); EOS # 0.2 10*3/uL (0.0-0.4); EOS % 1.6 % (1.0-4.0); HEMATOCRIT 45.6 % (37.0-47.0); LYMPH # 2.5 10*3/uL (1.3-4.4); MEAN CELL VOLUME 92.1 fl (81.0-99.0); MEAN CORPUSCULAR HGB 29.5 pg (27.0-31.0); MEAN PLATELET VOLUME 10.7 fl (9.6-12.3); MONO # 0.8 10*3/uL (0.1-1.0); NEUT # 8.2 10*3/uL (2.3-7.9); NEUT % 69.1 % (47.0-73.0); PLATELET COUNT AUTOMATED 370 10*3/uL (130-400); RED BLOOD COUNT 4.95 10*6/uL (4.10-5.10); WHITE BLOOD COUNT 11.8 10*3/uL (4.8-10.8)
[2024-08-23 12:24] LABS: BUN 11 mg/dl (9-23); CHLORIDE 104 mmol/L (98-107)
== END 2024-08-23 13:07 | disposition home or self-care (01) ==
LOC: ED 11:02
PROVIDERS: Nurse Practitioner Family
DX: S20.213A Contusion of bilateral front wall of thorax, initial encounter (principal); U07.1 COVID-19; I10 Essential (primary) hypertension; F32.A Depression, unspecified; F41.9 Anxiety disorder, unspecified; J45.909 Unspecified asthma, uncomplicated; Z91.041 Radiographic dye allergy status; Z91.013 Allergy to seafood; Z90.49 Acquired absence of other specified parts of digestive tract; Z98.51 Tubal ligation status; Z98.890 Other specified postprocedural states; Z90.710 Acquired absence of both cervix and uterus; Y08.89XA Assault by other specified means, initial encounter; Y93.89 Activity, other specified; Y92.89 Other specified places as the place of occurrence of the external cause; Y99.0 Civilian activity done for income or pay

== ENCOUNTER 2025-01-17 07:16 | Emergency (ER) | payer BC, OTHER ==
[~2025-01-17] VITALS: Ht 170.1 cm; Wt 93.0 kg
[2025-01-17 07:21] VITALS: BP 118/59
[2025-01-17] MEDS ORDERED: VENLAFAXINE H37.5 M5 PO (07:23)
[2025-01-17] MEDS ORDERED: Acetaminophen/Oxycodone 5 MG/325 MG TABLET PO ONE (09:30)
[2025-01-17] MEDS ORDERED: PERCOCET 5-3251 EACH PO (09:33)
== END 2025-01-17 09:30 | disposition home or self-care (01) ==
LOC: ED 07:16
DX: S60.022A Contusion of left index finger without damage to nail, initial encounter (principal); Z91.041 Radiographic dye allergy status; Z91.013 Allergy to seafood; Z79.899 Other long term (current) drug therapy; Z90.49 Acquired absence of other specified parts of digestive tract; Z98.890 Other specified postprocedural states; Z90.710 Acquired absence of both cervix and uterus; W22.8XXA Striking against or struck by other objects, initial encounter; Y93.89 Activity, other specified; Y92.89 Other specified places as the place of occurrence of the external cause; Y99.8 Other external cause status

== ENCOUNTER 2025-03-31 19:34 | Emergency (ER) | payer OTHER ==
[~2025-03-31 19:34] MED LIST changes: +PERCOCET 5-3251 EACH PO; +VENLAFAXINE H37.5 M5 PO
[2025-03-31 19:45] VITALS: BP 143/86
[2025-03-31] MEDS ORDERED: Ketorolac Tromethamine 60 MG/2 ML VIAL IM ONE (20:25)
[2025-03-31] MEDS ORDERED: NAPROXEN250 MG PO (20:30)
== END 2025-03-31 20:32 | disposition home or self-care (01) ==
LOC: ED 19:34
DX: S80.01XA Contusion of right knee, initial encounter (principal); Z91.041 Radiographic dye allergy status; Z91.013 Allergy to seafood; Z79.899 Other long term (current) drug therapy; Z90.49 Acquired absence of other specified parts of digestive tract; Z98.890 Other specified postprocedural states; Z90.711 Acquired absence of uterus with remaining cervical stump; W01.0XXA Fall on same level from slipping, tripping and stumbling without subsequent striking against object, initial encounter; Y93.89 Activity, other specified; Y92.89 Other specified places as the place of occurrence of the external cause; Y99.8 Other external cause status

== ENCOUNTER → 2025-04-11 | Outpatient (CLI) | payer BC | END | disposition home or self-care (01) | LOC: MAMMO 08:16 | PROVIDERS: ATTEND Family Medicine | DX: S20.01XA Contusion of right breast, initial encounter (principal); R92.323 Mammographic fibroglandular density, bilateral breasts; X58.XXXA Exposure to other specified factors, initial encounter; Y93.89 Activity, other specified; Y92.89 Other specified places as the place of occurrence of the external cause; Y99.8 Other external cause status ==

== ENCOUNTER 2025-08-19 15:00 | Emergency (ER) | payer OTHER ==
[~2025-08-19] VITALS: Ht 167.6 cm; Wt 96.9 kg
[2025-08-19 15:10] VITALS: BP 122/75
[2025-08-19] MEDS ORDERED: SODIUM CHLORIDE 0.9% 1,000 ML IV ONE (15:10)
[2025-08-19] MEDS ORDERED: MAGNESIUM SULFATE 50 ML IV ONE (15:10)
[2025-08-19 15:22] LABS: BASO # 0.1 10*3/uL (0.0-0.1); BASO % 0.5 % (0.0-1.0); EOS # 0.3 10*3/uL (0.0-0.4); EOS % 2.6 % (1.0-4.0); MEAN CELL VOLUME 91.2 fl (81.0-99.0); MEAN CORPUSCULAR HGB 29.8 pg (27.0-31.0); MEAN PLATELET VOLUME 10.8 fl (9.6-12.3); MONO # 0.5 10*3/uL (0.1-1.0); MONO % 5.1 % (3.0-9.0); NEUT # 6.2 10*3/uL (2.3-7.9); NEUT % 59.9 % (47.0-73.0); NUCLEATED RED BLOOD CELL 0.0 % (0.0-0.0); NUCLEATED RED BLOOD CELL 0.0 10*3/uL (0.0-0.0); PLATELET COUNT AUTOMATED 339 10*3/uL (130-400); RED CELL DISTRI WIDTH 11.6 % (0-14.5)
[2025-08-19] MEDS ORDERED: LORazepam 1 MG TAB PO ONE (15:25)
[2025-08-19 15:41] LABS: BUN 10 mg/dl (9-23)
[2025-08-19] MEDS ORDERED: PREDNISONE20 M1 PO (16:36)
[2025-08-19] MEDS ORDERED: VENTOLIN 02.5 MG/3 M INH (16:36)
== END 2025-08-19 17:17 | disposition home or self-care (01) ==
LOC: ED 15:00
PROVIDERS: Emergency Medicine
DX: J45.901 Unspecified asthma with (acute) exacerbation (principal); F41.9 Anxiety disorder, unspecified; F32.A Depression, unspecified; Z90.49 Acquired absence of other specified parts of digestive tract; Z90.710 Acquired absence of both cervix and uterus; Z98.890 Other specified postprocedural states; Z91.013 Allergy to seafood; Z88.8 Allergy status to other drugs, medicaments and biological substances

== ENCOUNTER 2025-09-11 07:24 | Emergency (ER) | payer OTHER ==
[~2025-09-11] VITALS: Ht 170.1 cm; Wt 95.3 kg
[~2025-09-11 07:24] MED LIST changes: +PREDNISONE20 M1 PO; +VENTOLIN 02.5 MG/3 M INH
[2025-09-11 07:47] VITALS: BP 131/53
[2025-09-11] MEDS ORDERED: HYDROCODONE-AC1 EAC1 PO (08:42)
[2025-09-11] MEDS ORDERED: NAPROSYN500 MG PO (08:42)
== END 2025-09-11 09:15 | disposition home or self-care (01) ==
LOC: ED 07:24
DX: S93.402A Sprain of unspecified ligament of left ankle, initial encounter (principal); Z91.041 Radiographic dye allergy status; Z91.048 Other nonmedicinal substance allergy status; Z91.013 Allergy to seafood; Z79.899 Other long term (current) drug therapy; Z90.49 Acquired absence of other specified parts of digestive tract; Z98.890 Other specified postprocedural states; Z90.710 Acquired absence of both cervix and uterus; X50.1XXA Overexertion from prolonged static or awkward postures, initial encounter; Y93.89 Activity, other specified; Y92.89 Other specified places as the place of occurrence of the external cause; Y99.8 Other external cause status